=== PATIENT | female | born 1975 | race Caucasian/White ===

== ENCOUNTER → 2016-10-24 | Outpatient (CLI) | payer OTHER ==
[~2016-10-24] MED LIST: BCPILLS PO
--- NOTE | 2016-10-27 15:15 | MAMMOGRAPHY REPORT ---
BILATERAL DIGITAL SCREENING MAMMOGRAM TOMOSYNTHESIS WITH CAD: 10/24/2016 TECHNIQUE: Breast tomosynthesis in addition to standard 2D mammography was performed. Current study was also evaluated with a Computer Aided Detection (CAD) system. COMPARISON: Comparison is made to exams dated: 08/21/2011 mammogram - [facility] an d 07/15/2007. BREAST COMPOSITION: The tissue of both breasts is extremely dense, which lowers the sensitivity of mammography. FINDINGS: There is a partially visualized mass seen within the left superior posterior breast, seen on the MLO view only. The visualized margins are circumscribed, and is felt to project more mediall y in the breast based on the tomosynthesis localizer bar. Recommend spot compression tomosynthesis views and possible breast ultrasound for further evaluation. This may represent a cyst or lymph nod e. Additionally, there is a 5 mm asymmetry seen within the right medial posterior breast, which likely represents normal overlapping fibroglandular tissue although spot compression tomosynthesis views an d possible breast ultrasound are recommended. The remainder of both breasts are not significantly changed, without suspicious masses, calcificatio ns, or areas of architectural distortion noted. IMPRESSION: ACR BI-RADS CATEGORY 0: INCOMPLETE EVALUATION: NEED ADDITIONAL IMAGING EVALUATION Right breast mass and right breast asymmetry, for which additional imaging evaluation is recommended . The patient will be called to schedule an appointment. Approximately 10% of breast cancers are not detected with mammography. A negative mammographic repor t should not delay biopsy if a clinically suggestive mass is present. Tessa Walker M.D. ah/:10/25/2016 12:34:05 School Bus Driver/Mechanic: Idalia EVANGELISTA(Pedro)(Michelle), [facility] letter sent: Addl Imaging 0 BI-RADS Code: ACR BI-RADS Category 0: Incomplete Evaluation: Need Additional Imaging Evaluation
== END | disposition home or self-care (01) ==
LOC: MERGE 11:00 → C.MAMM 11:02
PROVIDERS: ATTEND Nurse Practitioner Adult Health
DX: Z12.31 Encounter for screening mammogram for malignant neoplasm of breast (principal); N63 Unspecified lump in breast; N64.89 Other specified disorders of breast

== ENCOUNTER → 2016-11-05 | Outpatient (CLI) | payer OTHER ==
--- NOTE | 2016-11-05 17:09 | MAMMOGRAPHY REPORT ---
UNILATERAL RIGHT DIGITAL DIAGNOSTIC MAMMOGRAM TOMOSYNTHESIS WITH CAD AND TARGETED RIGHT ULTRASOUND: 11/05/2016 CLINICAL HISTORY: 40-year-old woman called back from screening mammography for asymmetries in the me dial posterior right breast on the CC view, and in the far posterior right breast along the posterio r nipple line on the MLO view. Strong family history of breast cancer including a male relative. TECHNIQUE: Spot compression right CC and MLO tomosynthesis images were obtained. COMPARISON: Comparison is made to exams dated: 10/24/2016 mammogram, 08/21/2011 mammogram - [facility], and 07/15/2007. BREAST COMPOSITION: The tissue of the right breast is extremely dense, which lowers the sensitivity of mammography. FINDINGS: There is an incompletely visualized partially circumscribed 10 mm mass in the far posteri or right breast, along the posterior nipple line on the spot compression MLO view. This is thought to project in the far medial, far posterior aspect of the breast based on the spot compression CC vi ew and measures 7.5 mm in transverse dimension. There is no evidence of associated architectural di stortion or calcification. The nodular asymmetry seen in the medial posterior right breast on the C C view on the 10/24/2016 screening mammogram has the appearance of normal fibroglandular tissue on t he current spot compression view. Nevertheless, further evaluation with ultrasound was performed th roughout the medial right breast. Real-time high-resolution sonographic evaluation was performed of the right breast with particular a ttention to the medial aspect of the breast. In the 2:00 right breast, 6 cm from the nipple, there is a circumscribed oval parallel hypoechoic solid mass without significant increased vascularity. I t measures 8.9 x 4.5 x 10.4 mm. This is thought to correlate with the incompletely visualized mammo graphic mass and is indeterminate. This most likely represents a fibroadenoma, but definitive giuseppe cterization with tissue sampling is recommended. IMPRESSION: ACR BI-RADS CATEGORY 4: SUSPICIOUS, TARGETED ULTRASOUND ACR BI-RADS CATEGORY 4: SUSPICI OUS 1. The asymmetry in the superior, far posterior right breast is thought to correlate with an incomp letely visualized, partially circumscribed lobulated 10.0 x 7.5 mm mass seen on both the spot compre ssion CC and MLO views. The probable sonographic correlate is identified in the 2:00 right breast o n ultrasound and based on sonographic measurements this mass measures 10.4 mm in greatest dimension. Although this most likely represents a fibroadenoma, given the solid nature, definitive characteri zation with an ultrasound guided core biopsy is recommended. 2. The nodular asymmetry in the medial posterior right breast, just anterior to this circumscribed mass is thought to represent normal fibroglandular tissue, as no other discrete solid or cystic mass was identified throughout the right breast on ultrasound. These results and recommendations were discussed with the patient at the time of the exam. She tent atively scheduled the right breast biopsy prior to leaving our department. Approximately 10% of breast cancers are not detected with mammography. A negative mammographic repor t should not delay biopsy if a clinically suggestive mass is present. Cherise Malik M.D. ay/:11/05/2016 15:15:17 Dietetic Technician: Lillian ODOM)(Michelle), [facility] letter sent: Abnormal 4/5 BI-RADS Code: ACR BI-RADS Category 4: Suspicious Ultrasound BI-RADS: ACR BI-RADS Category 4: Suspic ious
== END | disposition home or self-care (01) ==
LOC: C.MAMM 13:09
PROVIDERS: ATTEND Nurse Practitioner Adult Health
DX: N64.89 Other specified disorders of breast (principal)

== ENCOUNTER → 2016-11-12 | Outpatient (CLI) | payer OTHER ==
--- NOTE | 2016-11-12 15:03 | Discharge Instructions ---
Discharge Instructions Procedure Procedure Date: November 12, 2016. Reason for visit: Right Mass. Discharge Discharge Date: November 12, 2016. Discharge Diagnosis: post right breast ultrasound guided core biopsy Instructions Activity Recommendations: Additional Limitations (see below) Return to School/Work: no limitations Recommended Home Diet: No Limitations Provider Instructions: ACTIVITY RECOMMENDATIONS: * No lifting, pushing, pulling or exercising the affected side for three days. RETURN TO SCHOOL/WORK: * You may return to work/school after the procedure, but do not perform any strenuous activities for 24 to 48 hours. MEDICATIONS: * Tylenol (two 325 mg) every four to six hours if needed for mild pain (if not allergic to Tylenol). DIET: * Resume previous diet. SPECIAL CARE INSTRUCTIONS: * Keep biopsy site dry for 24 hours. May shower after 24 hours, but do not soak (bathe) incision. * May remove Tegaderm (plastic patch) tomorrow AFTER showering. * Leave the steri-strips on for one week. Allow the steri-strips to fall off by themselves. If not off after one week, you may remove them. You may place a Bandaid crosswise over the strips, if desired. * Apply ice 10 minutes on and 10 minutes off as needed. * Wear a bra at bedtime to sleep more comfortably for 2-3 days. * Your referring physician should have the results after approximately 5 to 7 business days. * Call for unusual bleeding, fever, drainage, etc or if you have any questions call [phone] during normal business hours or after hours call Dr Malik, . FOLLOW UP VISIT: Follow-up with Referring Physician as scheduled. Allergies Coded Allergies: No Known Allergies (Unverified Allergy, Mild, 05/09/07) Michael Washburn Recommendations: Call your doctor if: * Temperature above 101 degrees * Pain not relieved by pain medicine ordered * There is increased drainage or redness from any incision * You have any unanswered questions or concerns. Your Doctors Instructions noted above were prepared by provider Cherise Malik. Patient Signature Section: Patient Instructions Signature Page Franci Cardozo Patient (or Guardian) Signature/Date: I have read and understand the instructions given to me by my caregivers. Caregiver/RN/Doctor Signature/Date: The above-named patient and/or guardian has received patient instructions on this date. + Original Patient Signature Page (only) stays with chart. Please make copy for patient.
--- NOTE | 2016-11-12 15:48 | MAMMOGRAPHY REPORT ---
THIS REPORT HAS BEEN AMENDED. AMENDMENT: 11/19/2016 Cherise Malik M.D. Pathology results from the ultrasound-guided core needle biopsy of a circumscribed solid mass in the 2:00 right breast yielded a benign fibroepithelial proliferation consistent with a fibroadenoma. T he pathology results are concordant with the imaging appearance. Given the extremely dense breasts and strong family history of breast cancer, would also recommend the addition of screening breast MR I to annual screening mammography. This can be spaced 6 months between mammograms. ULTRASOUND GUIDED BIOPSY RIGHT BREAST: 11/12/2016 CLINICAL HISTORY: 40-year-old woman with an indeterminate solid mass in the 2:00 right breast, thoug ht to correlate with an incompletely visualized mammographic mass in the upper inner far posterior b reast. Patient presents for ultrasound guided core needle biopsy. She has a strong family history of breast cancer with multiple relatives including a male relative with breast cancer. Mother diagn osed at age 36. COMPARISON: Comparison is made to exams dated: 11/05/2016 ultrasound, 11/05/2016 mammogram, 10/24/2016 mammogram, 08/21/2011 mammogram - [facility], and 07/15/2007. PATIENT CONSENT: The procedure, risks and benefits were discussed with the patient and informed writ ten consent was obtained. Specific risks to this procedure include: bleeding, infection, puncture of adjacent structure, nontarget biopsy, metal allergy and medication reaction. PROCEDURE DESCRIPTION: A time out was performed and the right breast was agreed as the site of biops y. The skin was prepped and draped in the usual sterile fashion. The solid circumscribed hypoechoic mass in the 2:00 right breast was chosen as the target for biopsy. Subcutaneous and intraparenchymal 1% buffered lidocaine was administered as local anesthesia. A skin incision was made. Through the incision, 4 samples were taken with a 14 gauge Achieve biopsy device. A metallic marker was placed a t the biopsy site. Hemostasis was achieved after manual compression. The patient tolerated the proce dure well and there was no immediate complication. Postprocedure right CC and ML tomosynthesis images were obtained. There is a new ribbon-shaped meta llic biopsy marker and no significant hematoma in the upper inner far posterior (2:00) right breast, at the site of the biopsied mass seen on ultrasound. Pending benign pathology results, would recom mend follow-up diagnostic right mammograms to ensure stability in 6 months. A bilateral breast MRI could also be performed at that time for additional screening. IMPRESSION: ULTRASOUND GUIDED BIOPSY Status post ultrasound guided core needle biopsy of an indeterminate solid mass in the 2:00 right br east, with biopsy marker placed at the site. Pending benign pathology results, follow-up right diagnostic mammograms and possible ultrasound are recommended in 6 months to ensure stability. Given the strong family history of breast cancer inclu ding male relatives and mother diagnosed at age 36, would recommend a breast MRI for additional scre ening. This could be performed around the time of the patient's diagnostic appointment in 6 months. The patient will receive notification of the biopsy results from her referring physician. Cherise Malik M.D. ay/:11/12/2016 15:17:34 Chiropractor Assistant: Esperanza ODOM)Jess), [facility]
--- NOTE | 2016-11-12 15:50 | MAMMOGRAPHY REPORT ---
UNILATERAL RIGHT DIGITAL DIAGNOSTIC MAMMOGRAM TOMOSYNTHESIS: 11/12/2016 CLINICAL HISTORY: Status post ultrasound-guided core needle biopsy of an indeterminate solid mass in the 2:00 right breast. Please refer to the report from right breast ultrasound guided core biopsy performed at the same bisi e for full detail. IMPRESSION: POST PROCEDURE IMAGING FOR MARKER PLACEMENT Please refer to the report from right breast ultrasound guided core biopsy performed at the same bisi e for full detail. Approximately 10% of breast cancers are not detected with mammography. A negative mammographic repor t should not delay biopsy if a clinically suggestive mass is present. Cherise Malik M.D. ay/:11/12/2016 15:05:58 Hydraulic Spinner: Esperanza EVANGELISTA(Pedro)(M), [facility] BI-RADS Code: Post Procedure Imaging For Marker Placement
== END | disposition home or self-care (01) ==
LOC: C.MAMM 14:15
PROVIDERS: ATTEND Nurse Practitioner Adult Health
DX: N63 Unspecified lump in breast (principal)

== ENCOUNTER → 2017-10-07 | Outpatient (CLI) | payer OTHER ==
[~2017-10-07] MED LIST changes: +GADAVIST IV PRN
--- NOTE | 2017-10-09 07:21 | MAMMOGRAPHY REPORT ---
BILATERAL DIGITAL DIAGNOSTIC MAMMOGRAM TOMOSYNTHESIS WITH CAD AND TARGETED LEFT ULTRASOUND: 10/07/2017 CLINICAL HISTORY: 41-year-old woman presents at time of annual exam and also follow-up of a nodular a symmetry anterior to a biopsy-proven fibroadenoma in the medial right breast. Strong family history of breast cancer. TECHNIQUE: Bilateral breast tomosynthesis in addition to standard 2D mammography was performed. A 2D exaggerated medial right CC view was also obtained to include visualization of the biopsy-proven fib roadenoma and associated biopsy marker clip. Current study was also evaluated with a Computer Aided Detection (CAD) system. COMPARISON: Comparison is made to exams dated: 10/07/2017 breast MRI, 11/12/2016 mammogram, 11/12/2016 ul trasound biopsy, 11/05/2016 ultrasound, 11/05/2016 mammogram, and 10/24/2016 mammogram - [facility]. BREAST COMPOSITION: The tissue of both breasts is extremely dense, which lowers the sensitivity of m ammography. FINDINGS: The glandular pattern is similar to prior mammograms. There is stable asymmetry in the med ial, far posterior right breast anterior to the biopsied fibroadenoma. No new suspicious mass, archi tectural distortion or cluster of microcalcifications is seen. Targeted ultrasound was performed in the lateral left breast to assess for the most prominent lymph n ode seen on MRI. A morphologically normal lymph node is seen in the 3:00 left breast, 9 cm from the nipple, measuring 4 mm. This is benign and no further workup is needed at this time. IMPRESSION: ACR BI-RADS CATEGORY 2: BENIGN, TARGETED ULTRASOUND ACR BI-RADS CATEGORY 2: BENIGN There is no mammographic or targeted sonographic evidence of malignancy. A 1 year screening mammogram and a breast MRI is recommended, given extremely dense breast parenchyma and strong family history o f breast cancer. The patient has been verbally notified of the results. Approximately 10% of breast cancers are not detected with mammography. A negative mammographic report should not delay biopsy if a clinically suggestive mass is present. Cherise Malik M.D. ay/:10/08/2017 11:33:43 Supervisor Boiler Repair: Idalia Maldonado, [facility] letter sent: Normal 1/2 BI-RADS Code: ACR BI-RADS Category 2: Benign Ultrasound BI-RADS: ACR BI-RADS Category 2: Benign
--- NOTE | 2017-10-09 07:21 | MAMMOGRAPHY REPORT ---
BREAST MRI OF BOTH BREASTS : 10/07/2017 CLINICAL HISTORY: 41-year-old woman with a strong family history of breast cancer, extremely dense br easts and recent biopsy-proven fibroadenoma in the 2:00 right breast. COMPARISON: Comparison is made to exams dated: 11/12/2016 mammogram, 11/12/2016 ultrasound biopsy, 2016 ultrasound, 11/05/2016 mammogram, 10/24/2016 mammogram, and 08/21/2011 mammogram - [facility]. TECHNIQUE: Using a 1.5 Violet magnet and dedicated breast coil, multisequence axial images were obtain ed through the breasts. After uneventful IV administration of 5.5 mL of Gadavist, dynamic multiphase contrast-enhanced axial images, and sagittal postcontrast were obtained. Temporal subtraction axial images and 3-D MIP images are provided. Everything was then reviewed on a 3-D workstation, [employer]. FINDINGS: Right breast: There is moderate confluent background parenchymal enhancement of the right breast. No suspicious spiculated or irregular enhancing mass, non-mass enhancement, architectural distortion or suspicious kinetics identified in the right breast. There is a small focus of susceptibility artifa ct within a mass in the 2:00 far posterior right breast, abutting the pectoralis muscle. This repres ents the biopsy-proven fibroadenoma, with associated biopsy marker clip. No focal skin thickening or enhancement. No nipple retraction. The retromammary fat is intact. No suspicious right axillary, s ubpectoral or internal mammary lymphadenopathy. There are a few morphologically normal reniform shap ed subcentimeter enhancing lymph nodes in the upper outer and 9:00 axes of the right breast. Left breast: There is moderate confluent background parenchymal enhancement of the left breast. No s uspicious enhancing mass, non-mass enhancement, architectural distortion or suspicious kinetics ident ified in the left breast. No focal skin thickening or enhancement. No nipple retraction. The retrom ammary fat is intact. No suspicious left axillary, subpectoral or internal mammary lymphadenopathy. Targeted ultrasound was performed during a diagnostic mammogram/ultrasound appointment on the same da y for the most prominent lymph node identified on the left, which represented a morphologically igor l lymph node in the 3:00 left breast, 9 cm from the nipple. Please refer to a separate report for fu ll detail. IMPRESSION: ACR BI-RADS CATEGORY 2: BENIGN There is no MRI evidence of malignancy in the breasts. Continuation of annual screening mammography and breast MRI schedule is recommended, given extremely dense breasts and strong family history of br east cancer. The patient will receive written notification of the results. Cherise Malik M.D. ay/:10/08/2017 11:31:41 Interstate Planner: vineyardist, [facility] letter sent: Normal 1/2 BI-RADS Code: ACR BI-RADS Category 2: Benign
== END | disposition home or self-care (01) ==
LOC: C.MRI 07:06
PROVIDERS: ATTEND Nurse Practitioner Adult Health
DX: N64.89 Other specified disorders of breast (principal); D24.1 Benign neoplasm of right breast; Z80.3 Family history of malignant neoplasm of breast; R92.2 Inconclusive mammogram